=== PATIENT | male | born 1950 | race African-American/Black ===

== ENCOUNTER 2016-06-08 11:17 | Emergency (ER) ==
[2016-06-08] MEDS ORDERED: TORADOL IM ONE (11:54)
[2016-06-08] MEDS ORDERED: DILAUDID IM ONE (11:54)
--- NOTE | 2016-06-08 11:55 | PROVIDER DOCUMENTATION ---
HPI-Musculoskeletal Pain/Inj - GENERAL Chief Complaint: Hip Pain Stated Complaint: LT HIP PAIN Time Seen by Provider: 06/08/16 11:42 Source: patient - HX OF PRESENT ILLNESS-MUSKULOSKELTAL Nature of Presenting Problem: Pt is a 65 y/o M c chief complaint of L hip pain that has become progressively worse and is impairing his ability to ambulate. Pt states he has a h/o sciatica on the L side. On arrival, pt is ambulatory. He denies any loss of bowel or bladder control, loss of sensation to his groin or lower extremities. On arrival , pt is in minimal distress. Review of Systems - Adult - REVIEW OF SYSTEMS - ADULT Constitutional: reports: no symptoms reported. denies: chills, fatique Eyes: reports: no symptoms reported. denies: blurred vision, double vision Ears, Nose, Mouth & Throat: reports: no symptoms reported. denies: ear pain, nose pain, throat pain Cardiovascular: reports: no symptoms reported. denies: chest pain, orthopnea Respiratory: reports: no symptoms reported. denies: cough, shortness of breath Gastrointestinal: reports: no symptoms reported. denies: abdominal pain, nausea Genitourinary: reports: no symptoms reported. denies: dysuria, hematuria Musculoskeletal: reports: bone pain, back pain, joint pain, joint swelling, muscle aches, muscle weakness Integumentary: reports: no symptoms reported. denies: itching, rash Neurological: reports: no symptoms reported. denies: numbness, paresthesia Psychiatric: reports: no symptoms reported. denies: anxiety, emotional problems Endocrine: reports: no symptoms reported. denies: cold intolerance, heat intolerance Hematologic/Lymphatic: reports: no symptoms reported. denies: blood clots, low blood count Allergic/Immunologic: reports: no symptoms reported All Other Systems: Reviewed and Negative Past History - Adult - PAST MEDICAL HISTORY-ADULT Review of Records: reports: Old Records Reviewed, Nursing Assessment Review, Medications Reviewed, Social history reviewed & non-contributory. Major Childhood Illnesses: reports: denies history Cardiovascular: reports: HTN Respiratory: reports: denies history Gastrointestinal: reports: denies history Obstetrical/Gynecological: reports: denies history Genitourinary: reports: denies history Musculoskeletal: reports: arthritis (gout, L hip), intervertebral disc disease Neurological: reports: denies history Endocrine/Immune: reports: denies history Other Conditions: reports: denies history - PRIOR SURGERIES/PROCEDURES Surgical/Procedure History: reports: hernia repair, orthopedic (extremity) - FAMILY HISTORY Family History: reviewed, not pertinent - SOCIAL HISTORY Smoking: denies Substance Use: none/never Alcohol Use Frequency: never Living Situation: family Physical Exam-Injury Related - Physical Exam-Injury Related Initial Vital Signs Reviewed: Yes General Appearance: appears well, alert, no apparent distress Eyes: PERRL/EOMI, pink conjunctivae, fundi clear, no AV nicking Head, Ears, Nose, Mouth & Throat: normocephalic/atraumatic, moist mucous membranes, normal ENT inspection Neck: non-tender, full range of motion, supple Respiratory: chest non-tender, lungs clear, normal breath sounds Cardiovascular: normal peripheral pulses, regular rate, rhythm, no edema Abdominal Exam: normal bowel sounds, non tender, soft Lymphatic: no adenopathy Back Exam: normal inspection, no CVA tenderness, no vertebral tenderness, muscle spasm (L lower back pain) Extremity: tenderness (tenderness and pain on flexion and rotation of L hip) Integumentary: normal color, warm/dry, blanching Neurologic: grossly normal, no motor/sensory deficits Psych/Mental Status: normal mood/affect, normal thought content, normal thought process, oriented x 3 - Glascow Coma Score Best Eye Response (Una): (4) open spontaneously Best Verbal Response (Una): (5) oriented Best Motor Response (Una): (6) obeys commands Progress - PLAN OF CARE/RESULTS Progress/Plan/Lab Results: Orders Category Date Time Status LUMBAR SPINE W/O CONTRAST [CT] Stat Exams 06/08/16 11:53 Taken PELVIS W/O CONTRAST [CT] Stat Exams 06/08/16 11:53 Taken Hydromorphone [Dilaudid] Med 06/08/16 11:54 Discontinued 1 mg IM NOW ONE Ketorolac [Toradol] Med 06/08/16 11:54 Discontinued 60 mg IM NOW ONE Vital Signs - 24 hr 06/08/16 11:28 Temperature 98.3 F Pulse Rate 84 Respiratory 20 Rate Blood Pressure 128/73 O2 Sat by Pulse 99 Oximetry - REASSESSMENT Reassessment #1 Time Reassessed: 13:00 (Pt states that he is feeling much improved after medications. He agrees to follow up with [facility] for further evaluation.) - CT/MRI 1 CT Study: Lumbar Spine Impression: Abnormal (No fx. Prominent degenerative changes with multi level spinal stenosis and neuralforaminal narowing in the lower L spine - Dr. Avery) 2 CT Study: Pelvis Impression: Abnormal (Mild hip arthritis and sacroilitis - Dr. Avery) Departure - Departure Time of Disposition Order: 13:04 DIAGNOSIS: Sciatica Qualifiers: Laterality: left Qualified Code(s): M54.32 - Sciatica, left side Disposition: HOME 01 Certified Medical Emergency: Emergent Condition: Stable Additional Instructions: FOLLOW UP WITH DR. CHAN ([facility], [place]) OR THE ORTHOSPINE SURGEON OF YOUR CHOICE ([facility], [facility], [facility]UROSUR[facility]ERY ). ED Follow Up Instructions: You have been treated by a care provider in the Emergency Department. These instructions are being provided to you so you can have an understanding of how to care for yourself upon discharge. Upon discharge from the Emergency Department, you are responsible for making arrangements for follow-up care by a physician of your choice. Take all prescribed medications as directed. Return to the Emergency Department immediately for any new or worsening symptoms. You may call the Physician Referral phone number at [phone] to obtain a list of Physicians who are taking new patients. Prescriptions: Cyclobenzaprine [Flexeril] 10 mg PO TID #20 tablet Ibuprofen [Motrin] 800 mg PO Q8H PRN PRN #20 tablet PRN Reason: inflammation Omeprazole [Prilosec] 20 mg PO DAILY@0700 #20 capsule Referrals: Che Samson MD [Primary Care Provider] - Kurtis Chan DO [STAFF PHYSICIAN] - Forms: Return to School/Parent Work Instructions: Sciatica, [id number] Attestation - Physician/ ANDERSON Attestation Patient care was provided by Advanced Practice Provider:: Yes Advanced Practice Provider:: Kurtsi Caceres Advanced Practice Provider documentation review:: The Mid-level provider documentation, treatment plan and medical decision making was reviewed by the physician who agrees with all treatment and medical decision making by the [facility].
--- NOTE | 2016-06-08 13:16 | Diag Imaging Result Document ---
PROCEDURE NAME: LUMBAR SPINE W/O CONTRAST - 06/08/2016 CT LUMBAR SPINE WITHOUT CONTRAST: FINDINGS: There is good alignment to the lumbar spine. No compressed vertebra. No other fracture. Prominent degenerative changes from L3 to the upper sacrum. There is prominent bone spurring as well as disk space narrowing and vacuum disks. There is facet hypertrophy at L2-3 resulting in at least moderate spinal stenosis. There is facet hypertrophy and bone spurring and bulging disks at L3-4 resulting in moderate spinal stenosis. Facet hypertrophy with posterior bone spurs and a bulging disk at L4-5 result in moderate to marked spinal stenosis. Neural foraminal narrowing is most pronounced at L4-5. IMPRESSION: 1. No acute fracture. 2. Prominent degenerative changes with multilevel spinal stenosis and neural foraminal narrowing. A preliminary report was given at 12:51 p.m.
--- NOTE | 2016-06-08 13:27 | Diag Imaging Result Document ---
PROCEDURE NAME: PELVIS W/O CONTRAST - 06/08/2016 CT PELVIS WITHOUT CONTRAST: FINDINGS: Degenerative changes are noted in the lower lumbar spine. These are described on the recent CT of the lumbar spine. Neither hip is dislocated. No hip fracture. Minimal arthritic changes with joint space narrowing and small bone spurring to the hips. There are small cysts. There is at least mild fairly symmetrical sacroiliac joint space narrowing with sclerosis. There is also bone spurring at the pubic symphysis. No pelvic fracture. The bowel loops in the pelvis are not dilated. No pelvic mass. The urinary bladder is only mildly distended. The muscles about the hips are symmetrical. IMPRESSION: Mild arthritic changes to each hip with mild to moderate sacroiliitis. A preliminary report was given at 1:02 p.m.
[2016-06-08 13:43] VITALS: BP 146/66
== END 2016-06-08 13:43 | disposition home or self-care (01) ==
LOC: ED 11:17
DX: M54.32 Sciatica, left side (principal); M47.9 Spondylosis, unspecified; M25.552 Pain in left hip; M54.5 Low back pain; M25.452 Effusion, left hip; M62.830 Muscle spasm of back; I10 Essential (primary) hypertension; M19.90 Unspecified osteoarthritis, unspecified site; Z79.899 Other long term (current) drug therapy
CPT/HCPCS: 72131; 72192; J1170; J1885